=== PATIENT | male | born 1955 | race Asian ===

== ENCOUNTER 2018-06-12 10:02 | Emergency (ER) | payer OTHER ==
[~2018-06-12] VITALS: Ht 175.3 cm; Wt 104.3 kg
[2018-06-12 10:12] VITALS: TEMP 97.3
[2018-06-12] MEDS ORDERED: METF500T PO (10:31)
[2018-06-12] MEDS ORDERED: CARDURA8 MG PO (10:32)
[2018-06-12] MEDS ORDERED: LIPITOR20 MG PO (10:32)
[2018-06-12] MEDS ORDERED: FISH OIL1 C10 PO (10:32)
[2018-06-12] MEDS ORDERED: OMEPRAZOLE20 M1 PO (10:33)
[2018-06-12] MEDS ORDERED: CADUET10 MG/10 M PO (10:33)
[2018-06-12] MEDS ORDERED: CHLORTHALID25 MG PO (10:34)
[2018-06-12] MEDS ORDERED: ALLO300T23 PO (10:34)
[2018-06-12] MEDS ORDERED: SERT100T PO (10:35)
[2018-06-12] MEDS ORDERED: BUSPIRONE5 MG PO (10:35)
[2018-06-12] MEDS ORDERED: DIVALPROEX500 MG PO (10:35)
[2018-06-12] MEDS ORDERED: MELOXICAM15 MG PO (10:36)
[2018-06-12] MEDS ORDERED: TYLENOL325 MG PO (10:36)
[2018-06-12 10:38] LABS: PLATELET COUNT 345 K/uL (142-355)
[2018-06-12 10:46] LABS: POTASSIUM 2.6 mmol/L (3.6-5.2)
[2018-06-12 14:05] VITALS: BP 132/85
== END 2018-06-12 14:05 | disposition home or self-care (01) ==
LOC: ED 10:02
DX: K52.89 Other specified noninfective gastroenteritis and colitis (principal); E87.6 Hypokalemia
CPT/HCPCS: 36415; 80053; 81000; 85027; 96360; 96361; 99284; Q9963

== ENCOUNTER 2019-10-07 09:12 | Outpatient (CLI) | payer OTHER ==
[~2019-10-07 09:12] MED LIST: ALLO300T23 PO; BUSPIRONE5 MG PO; CADUET10 MG/10 M PO; CARDURA8 MG PO; CHLORTHALID25 MG PO; DIVALPROEX500 MG PO; FISH OIL1 C10 PO; LIPITOR20 MG PO; MELOXICAM15 MG PO; METF500T PO; OMEPRAZOLE20 M1 PO; SERT100T PO; TYLENOL325 MG PO
== END 2019-10-07 16:00 | disposition home or self-care (01) ==
LOC: RAD 09:12
DX: M10.9 Gout, unspecified (principal); M54.9 Dorsalgia, unspecified

== ENCOUNTER 2020-03-07 07:56 | Emergency (ER) | payer OTHER ==
[~2020-03-07] VITALS: Ht 175.3 cm; Wt 115.7 kg
[2020-03-07 08:01] VITALS: TEMP 99.1
[2020-03-07 08:48] LABS: PLATELET COUNT 345 K/uL (142-355)
[2020-03-07 08:50] LABS: POTASSIUM 3.3 mmol/L (3.6-5.2); SODIUM 141 mmol/L (136-145)
[2020-03-07 11:15] VITALS: BP 186/88
== END 2020-03-07 11:15 | disposition home or self-care (01) ==
LOC: ED 07:56
PROVIDERS: Emergency Medicine
DX: R10.11 Right upper quadrant pain (principal); K76.89 Other specified diseases of liver; N28.89 Other specified disorders of kidney and ureter
CPT/HCPCS: 80053; 81000; 82150; 82550; 82553; 83690; 84484; 85027; 93005; 96374; 99284; J1885; Q9963